=== PATIENT | female | born 1950 | race American Indian/Alaskan Native ===

== ENCOUNTER 2020-09-21 08:00 | Outpatient (CLI) | payer OTHER | END 2020-09-21 08:30 | disposition home or self-care (01) | LOC: PPH VACUNA 08:00 | DX: Z23 Encounter for immunization (principal) ==

== ENCOUNTER 2020-10-12 08:00 | Outpatient (CLI) | payer OTHER | END 2020-10-12 08:30 | disposition home or self-care (01) | LOC: PPH VACUNA 08:00 | DX: Z23 Encounter for immunization (principal) ==

== ENCOUNTER 2021-04-22 08:00 | Outpatient (CLI) | payer OTHER | END 2021-04-22 08:30 | disposition home or self-care (01) | LOC: PPH VACUNA 08:00 | PROVIDERS: ATTEND Emergency Medicine Pediatric Emergency Medicine | DX: Z23 Encounter for immunization (principal) ==

== ENCOUNTER 2024-12-17 06:00 | Day surgery (SDC) | payer OTHER ==
[2024-12-10 12:08] VITALS: BP 160/81
[2024-12-10 12:09] VITALS: BP 160/72
[~2024-12-17] VITALS: Ht 157.5 cm; Wt 64.9 kg
[~2024-12-17 06:00] MED LIST: EXCEDRIN MIGRA1 EACH PO; MULTIPLE VITAM1 EAC2 PO
[2024-12-17] MEDS ORDERED: LIDOCAINE HCL 1%/EPINEPHRINE 20ML VIAL IJ ONE (07:09)
[2024-12-17] MEDS ORDERED: BUPIVACAINE HCL/MPF 0.5% 30ML VIAL ONE (07:09)
[2024-12-17] MEDS ORDERED: CLINDAMYCIN PHOSPHATE 150 MG/ML (900mg) ONE (07:10)
[2024-12-17] MEDS ORDERED: LIDOCAINE HCL 1% 10ML VIAL ONE (07:18)
[2024-12-18] MEDS ORDERED: CLINDAMYCIN PHOSPHATE 150 MG/ML (900mg) IV ONE (15:30)
== END 2024-12-17 10:30 | disposition home or self-care (01) ==
LOC: CIR.AMB 06:00
PROVIDERS: ATTEND Surgery Surgery of the Hand
DX: M65.842 Other synovitis and tenosynovitis, left hand (principal); Z88.0 Allergy status to penicillin